=== PATIENT | female | born 1945 | race African-American/Black ===

== ENCOUNTER → 2020-11-21 | Outpatient (CLI) | payer OTHER | LOC: HYPER 09:09 | PROVIDERS: ATTEND Emergency Medicine | DX: E11.621 Type 2 diabetes mellitus with foot ulcer (principal); L97.522 Non-pressure chronic ulcer of other part of left foot with fat layer exposed; E11.622 Type 2 diabetes mellitus with other skin ulcer; L89.510 Pressure ulcer of right ankle, unstageable; L97.311 Non-pressure chronic ulcer of right ankle limited to breakdown of skin; L03.116 Cellulitis of left lower limb; L30.4 Erythema intertrigo; R60.0 Localized edema; E11.52 Type 2 diabetes mellitus with diabetic peripheral angiopathy with gangrene; I96 Gangrene, not elsewhere classified; E11.36 Type 2 diabetes mellitus with diabetic cataract; E11.39 Type 2 diabetes mellitus with other diabetic ophthalmic complication; H40.9 Unspecified glaucoma; G89.4 Chronic pain syndrome; I10 Essential (primary) hypertension; M32.10 Systemic lupus erythematosus, organ or system involvement unspecified; M81.0 Age-related osteoporosis without current pathological fracture; M21.371 Foot drop, right foot; M21.372 Foot drop, left foot; M19.90 Unspecified osteoarthritis, unspecified site; F32.9 Major depressive disorder, single episode, unspecified; F06.30 Mood disorder due to known physiological condition, unspecified; Z86.718 Personal history of other venous thrombosis and embolism; Z79.4 Long term (current) use of insulin ==

== ENCOUNTER 2020-11-25 10:03 | Inpatient (IN) | payer OTHER ==
[~2020-11-25] VITALS: Ht 162.6 cm; Wt 145.2 kg
--- NOTE | ~2020-11-25 | EMS ---
[address] [address] EMS Patient Care Report Name: MICHAEL MONTEMAYOR Room #: 170-1 ADM IN M.R.#: [id number] Admission: 11/25/20 Attend Phys: Jordon Flores MD Discharge: Date of : 43 Report #: [id number] THIS REPORT FOR: //name// Report Transmitted: 11/25/2020 19:14 EMS Care Summary [place], [place]/[facility] Incident [id number] @ 11/25/2020 09:29 Incident Location [address] Patient MICHAEL MONTEMAYOR Female, 75 Years 1945 Patient Address [address] [place] [address] Patient History Hypertension (HTN),Hyperlipidemia,Gastro-Esophageal Reflux Disease (GERD),Type 2 Diabetes,Cellulitis, Patient Allergies No known allergies, Patient Medications Novolog, Chief Complaint Pain in Left Foot and Left Bottom Disposition Transported No Lights/[place] Dispatch Reason Stroke/CVA Transported To [facility] Narrative Dispatched to the scene of a 75 year old female with altered mental status. Upon arrival, met P37 on scene and they stated patient was altered this [facility] [address] [place] [address] EMS Patient Care Report Name: MICHAEL MONTEMAYOR Room #: 170-1 ADM IN [place]#: [id number] Admission: 11/25/20 Attend Phys: Jordon Flores MD Discharge: Date of : 43 Report #: [id number] morning. P37 stated patient was alert and oriented x4, GCS 15 and was negative on CPHSS. Patient states she isn???t feeling like her normal self. Patient complains of pain in her left bottom. Stated she has a wound - unsure how long it had been there. Patient also has a wound on her left foot. Patient was assisted to the cot, secured, and loaded into the ambulance. An ALS assessment was performed and vitals were monitored. Patient complained of pain in her bottom while en route to hospital. Upon hospital arrival, patient was taken in on the cot, moved to the hospital bed, bed rails were raised, and patient care was transferred to the receiving nurse. Initial Vitals @09:51P: 102,R: 18,BP: 110/67,Pain: 6/10,GCS: 15,SpO2: 98,Revised Trauma: 12, @09:42P: 102,R: 18,BP: 115/68,Pain: 6/10,GCS: 15,Temp: 98.8F,Glucose: 149,CO: 1,SpO2: 96,Revised Trauma: 12, Assessments @09:41MENTAL:Time Oriented,Person Oriented,Place Oriented,Event Oriented,SKIN:HEENT:Head/Face: No Abnormalities,Neck/Airway: No Abnormalities,LUNG SOUNDS:General: No Abnormalities,ABDOMEN:General: No Abnormalities,PELVIS//GI:No Abnormalities,EXTREMITIES:Left Leg: Edema,Left Leg: Other,Right Leg: Edema,Capillary Refill: Left Upper: < 2 Sec,Left Arm: No Abnormalities,Right Arm: No Abnormalities,PULSE:Radial: 2+ Normal,NEURO:No Abnormalities,@09:52MENTAL:No Abnormalities,SKIN:No Abnormalities,HEENT:Head/Face: No Abnormalities,Eyes: No Abnormalities,Neck/Airway: No Abnormalities,LUNG SOUNDS:General: No Abnormalities,Left Upper: No Abnormalities,Right Upper: No Abnormalities,Left Lower: No Abnormalities,Right Lower: No Abnormalities,ABDOMEN:General: No Abnormalities,Left Upper: No Abnormalities,Right Upper: No Abnormalities,Left Lower: No Abnormalities,Right Lower: No Abnormalities,PELVIS//GI:No Abnormalities,EXTREMITIES:Left Leg: Other,Left Leg: Edema,Right Leg: Edema,Left Arm: No Abnormalities,Right Arm: No Abnormalities,PULSE:NEURO:No Abnormalities, Impression Pain (Non-Traumatic) Procedures @09:41ALS AssessmentResponse: UnchangedSucceeded Timeline 09:27,Call Received 09:27,Dispatch Notified 09:29,Dispatched 09:29,En Route 09:40,On Scene 09:41,At Patient [address] [address] EMS Patient Care Report Name: MICHAEL MONTEMAYOR Room #: 170-1 ADM IN M.R.#: [id number] Admission: 11/25/20 Attend Phys: Jordon Flores MD Discharge: Date of : 43 Report #: [id number] 09:41,ALS Assessment,Response: UnchangedSucceeded, 09:42,BP: 115/68 M,PULSE: 102,RR: 18 R,SPO2: 96 Ox,ETCO2: ,B,PAIN: 6,GCS: 15, 09:48,Depart Scene 09:51,BP: 110/67 M,PULSE: 102,RR: 18 R,SPO2: 98 Ox,ETCO2: ,BG: ,PAIN: 6,GCS: 15, 09:59,At Destination 10:25,Call Closed Disclaimer v1.1 Copyright 2020 [employer] This EMS Care Summary contains data elements from the applicable legal record (which may be displayed differently). It is designed to provide pertinent information for the following purposes: continuity of care, clinical quality, and state data reporting. The complete legal record is available to ED staff and administrators of the receiving hospital in ES's Patient Tracker. All data is provided "as is."
[2020-11-25 10:06] VITALS: BP 137/74
[2020-11-25 10:27] LABS: ABSOLUTE NEUTROPHILS 10.3 thou/uL (1.4-8.2); BASOPHILS 0.5 % (0.0-2.0); EOSINOPHILS 1.3 % (0.0-3.0); HEMATOCRIT 35.6 % (37.0-47.0); LYMPHOCYTES 9.8 % (24.0-44.0); MCH 26.1 pg (26.0-34.0); MCHC 30.9 g/dL (28.0-37.0); MCV 84.3 fL (80.0-100.0); MONOCYTES 7.6 % (1.0-8.0); PLATELET COUNT 306 thou/uL (150-400); POLYS 80.8 % (36.0-66.0); RBC 4.22 mil/uL (4.20-5.00); RDW 14.9 % (10.5-14.5); WBC 12.8 thou/uL (4.0-11.0)
[2020-11-25 10:34] LABS: CALCIUM 9.6 mg/dL (8.5-10.1); CREATININE 2.1 mg/dL (0.6-1.0); POTASSIUM 4.9 mmol/L (3.5-5.1)
[2020-11-25 10:40] LABS: ALBUMIN 3.2 g/dL (3.4-5.0); TOTAL BILIRUBIN 0.5 mg/dL (0.2-1.0); TOTAL PROTEIN 8.1 g/dL (6.4-8.2)
[2020-11-25 16:13] LABS: URINE BILIRUBIN NEGATIVE (Negative); URINE BLOOD TRACE (Negative); URINE CLARITY SL CLOUDY; URINE COLOR YELLOW; URINE GLUCOSE-RANDOM* NEGATIVE (Negative); URINE KETONES NEGATIVE (Negative); URINE LEUKOCYTES-REFLEX 3+ (Negative); URINE NITRITE-REFLEX POSITIVE (Negative); URINE PROTEIN (DIPSTICK) 1+ (Negative); URINE UROBILINOGEN 0.2 E.U./dl (0.2-1.0)
[2020-11-25 16:29] LABS: CASTS None Seen /LPF (None Seen); SQUAMOUS 0-3 Few /LPF (0-3)
[2020-11-25 16:30] LABS: BACTERIA-REFLEX >30 Many /HPF (None Seen); CRYSTALS None Seen /LPF (None Seen); URINE RBC 0-2 Rare /HPF (0-2); WBC CLUMPS Moderate (None Seen)
[2020-11-25 16:48] VITALS: BP 145/56
[2020-11-25] MEDS ORDERED: ELIQUIS5 MG PO (17:59)
[2020-11-25] MEDS ORDERED: SENNA PLUS TAB1 EACH PO (18:00)
[2020-11-25] MEDS ORDERED: CEPACOL INSTAM1 EACH PO (18:00)
[2020-11-25] MEDS ORDERED: NEURONTIN300 MG PO (18:01)
[2020-11-25] MEDS ORDERED: IRON325 M1 PO (18:01)
[2020-11-25] MEDS ORDERED: EFFEXOR XR37.5 MG PO (18:01)
[2020-11-25] MEDS ORDERED: LASIX 40 MG TAB40 MG PO (18:01)
[2020-11-25] MEDS ORDERED: LEVEMIR100 UNIT/1 SUBQ (18:02)
[2020-11-25] MEDS ORDERED: VYZULTA5 ML OPHTHALMIC (18:02)
[2020-11-25] MEDS ORDERED: LOPRESSOR50 MG PO (18:03)
[2020-11-25] MEDS ORDERED: ZEGERID 20 MG1 EACH PO (18:03)
[2020-11-25] MEDS ORDERED: NOVOLOG100 UNIT/M SUBQ (18:03)
[2020-11-25] MEDS ORDERED: KLOR-CON 10 ER10 MEQ PO (18:04)
[2020-11-25] MEDS ORDERED: PERCOCET 5-3251 EACH PO (18:04)
[2020-11-25] MEDS ORDERED: PRAVACHOL40 MG PO (18:04)
[2020-11-25] MEDS ORDERED: PREDNISONE 5 MG5 M1 PO (18:05)
[2020-11-26 04:59] LABS: ALBUMIN 2.6 g/dL (3.4-5.0); PHOSPHORUS 2.3 mg/dL (2.5-4.9); POTASSIUM 4.1 mmol/L (3.5-5.1)
[2020-11-26 05:05] LABS: HEMATOCRIT 31.7 % (37.0-47.0); HEMOGLOBIN 9.8 gm/dL (12.0-15.0); MCV 83.9 fL (80.0-100.0); RBC 3.78 mil/uL (4.20-5.00); RDW 14.7 % (10.5-14.5); WBC 13.8 thou/uL (4.0-11.0)
--- NOTE | 2020-11-26 10:52 | NUR ---
75-year-old female with chronic debility and diabetes presenting today for evaluation of mental status change. Notably patient is a chronically bedbound who was brought to the ED because of decreased mentation. Workup in the ED noted a WBC count of 12.8, evidence of a UTI, a creatinine of 2.1 and a CRP of 45. On exam she had a 4 cm purulent sacral ulcer. The patient was admitted for a sacral decubitus ulcers, UTI, ARG, DM2. COVID PRC negative in the ED on after negative COVID Antigen conducted in the ED also on 11-25-20. The patient currently resides in [facility] and sees Dr. Nunn for care. Called and spoke [facility] skilled nursing professional Yasmeen who states this patient does NOT have a DPOA as she has made all her own decisions and remains alert and oriented x4. Yasmeen also states that patient was last seen on either the or of this month at [facility] wound care. Yasmeen states that the next of kin is her brother Ben Swenson at [phone]. Have notified Registration to correct the current patient face sheet. CM will follow for discharge needs.
[2020-11-26 18:24] VITALS: BP 185/75
[2020-11-26 19:48] VITALS: BP 178/65
--- NOTE | 2020-11-27 02:38 | NUR ---
PT ADMITTED INTO THE UNIT FROM THE ER AT 1915 WITH C/O DIFFUSE MALAISE,PAIN TO SACRAL DECUB,PAIN TO LT FOOT AND MORE ALTERED THAN NORMAL.PT IS A/O X3.PT IS ACCUCHECK ACHS WITH SSI.PT WOUND PICTURES TAKEN ON ADMISSION AND ASSESSMENT DONE.PT ON BEDREST AND USES WHEELCHAIR IN FACILITY ([facility]).PT IS NSR ON TELE.PT HAS SLATER FOR URINARY RETENTION.PT NPO FROM MIDNIGHT FOR WOUND DEBRIDEMENT TODAY.PT C/O BACK PAIN AND PAIN MANAGED WITH OXYCODONE.WILL CONTINUE TO MONITOR
[2020-11-27 04:58] VITALS: BP 138/64
[2020-11-27 05:34] LABS: HEMATOCRIT 30.5 % (37.0-47.0); HEMOGLOBIN 9.6 gm/dL (12.0-15.0); MCH 26.4 pg (26.0-34.0); MCHC 31.4 g/dL (28.0-37.0); MCV 84.1 fL (80.0-100.0); RBC 3.63 mil/uL (4.20-5.00); RDW 14.9 % (10.5-14.5); WBC 10.3 thou/uL (4.0-11.0)
[2020-11-27 05:40] LABS: CALCIUM 8.5 mg/dL (8.5-10.1); CREATININE 2.1 mg/dL (0.6-1.0); POTASSIUM 3.8 mmol/L (3.5-5.1)
[2020-11-27 08:52] VITALS: BP 158/46
--- NOTE | 2020-11-27 09:13 | HC ---
[facility] [place] [address] [address] CONSULTATION Name: MICHALE MONTEMAYOR Darell Room #: 451-P ADM IN .R.#: [id number] Admission: 11/25/20 Attend Phys: Jordon Flores MD Discharge: Date of : 43 Report #: [id number] THIS REPORT FOR: cc: FAM - No family physician/PCP FAM - No family physician/PCP Giovanni Wilburn MD ~ DATE OF SERVICE: 11/26/2020 REASON FOR CONSULTATION: I was asked to evaluate concerning sacral wound infection and altered mental status. HISTORY OF PRESENT ILLNESS: The patient is 75 years old with underlying diabetes, chronic debilitated state, who has had a sacral wound, unclear of the duration, presents with altered mental status and further evaluation of such. She is bedbound. She has had amputations of both great toes. She also has a wound to the left second toe. She reports pain in her sacral region. She has had no reported cough, chest pain, nausea, vomiting or diarrhea. She was unable to give any further details on 14-point review of systems. ALLERGIES: None known. MEDICATIONS: As noted on her MAR, which were reviewed including Eliquis, Effexor, Neurontin, iron, Lasix, insulin, Lopressor, omeprazole, oxycodone, potassium, Pravachol, 10 mg of prednisone a day, latanoprostene eyedrops. PAST MEDICAL HISTORY: Diabetes, hyperlipidemia, pneumonia, GERD, SLE, peripheral neuropathy, osteoporosis, glaucoma, iron deficiency anemia, urinary retention, hypertension. FAMILY HISTORY: No reported tuberculosis. SOCIAL HISTORY: Past smoker, no significant alcohol intake. PHYSICAL EXAMINATION: VITAL SIGNS: Afebrile and hemodynamically stable. Oxygen saturation 92% on room air. GENERAL: She was alert. She was weak, obese. SKIN: Stage 4 sacral decubitus right over the coccyx, was tender to palpation. No purulent drainage. Left second toe with sausage deformity, erythematous with an ulceration over the DIP joint with small amount of purulent drainage. No palpable adenopathy. EYES: Without scleral icterus. MOUTH: Without mucositis. NECK: Supple. LUNGS: Clear. [facility] [address] [place] [address] CONSULTATION Name: MICHAEL MONTEMAYOR Darell Room #: 451-P [facility] IN [facility].#: [id number] Admission: 11/25/20 Attend Phys: Jordon Flores MD Discharge: Date of : 43 Report #: [id number] HEART: Regular, without murmur, gallop or rub. ABDOMEN: Soft and nontender with no hepatosplenomegaly or mass. Indwelling Garcia catheter. NEUROLOGIC: Cranial nerves intact. Was able to move all extremities, but was very weak. She had 2+ anasarca throughout her extremities. BACK: Nontender. PSYCHIATRY: Mood without anxiety or depression. LABORATORY STUDIES: Reviewed. MICROBIOLOGY: Reviewed. CT scan of the abdomen and pelvis reviewed, noting mild left greater than right hydronephrosis and mild distention of the bladder. No pelvic abscess or evidence of osteomyelitis. IMPRESSION: 1. A 75-year-old with underlying diabetes, hypertension, presents with confusional state, evidence of urinary tract infection and Gram-negative bacteremia. 2. Also, has sacral decubitus and a diabetic foot wound to left second toe. 3. Delirium secondary to the above. 4. Morbid obesity. 5. Acute kidney injury. 6. Anemia. RECOMMENDATIONS: 1. We will continue broad antibiotic coverage pending culture results. The patient will require indwelling Garcia catheter and possible Urology followup. 2. Further debridement of her sacral wound and her left second toe. 3. Control diabetes. 4. Serial laboratory studies and adjust antibiotics for her renal failure. <ELECTRONICALLY SIGNED> By: Giovanni Wilburn MD 11/27/20 0913 1822 1848 Giovanni Wilburn MD /nt
--- NOTE | 2020-11-27 13:43 | NUR ---
Case opened to follow for dc planning. Terminal System Operator visited with the pt at bedside and case discussed with the care team. Pt is a skilled nursing care resident from [facility]. She has lived there several years. She is A&ox3 today and requests keno writer to call her brother Ben to update him. Message left for Ben to advise of pt's room number and the number to the unit as well as our current visitor policy. Pt is covid neg upon admission. Surgical consult indicates I/D of sacral wound not indicated at this time. Pt is being treated for UTI with pending blood cultures. The pt reports she is feeling better. Ben is her primary next of kin contact and support. She is a DNR. A copy of the Outside the hospital DNR form is on the chart. Dc plan is to return to SNF at [facility]. The pt has been coming in to our wound clinic as an outpt as well. DC time frame 1-2 days. Dc convention planner to fax a clinical update to the DON at [facility]. They are holding her bed.
--- NOTE | 2020-11-27 15:22 | NUR ---
FAXED CLINICAL UPDATE TO [facility] RECEIVED CONFIRMATION AND LEFT MSG WITH ADM ESQUIVEL.
[2020-11-27 15:41] VITALS: BP 141/48
--- NOTE | 2020-11-27 19:31 | NUR ---
Assumed pt care at 7am.Pt in bed sleeping on and off. Alert and oriented x3 with intermitent confusion.Assessment completed.vss.Dr Valverde here,order noted. Dr Chauhan here later this evening to see pt,additional order noted.Drsg change will be done by daniel rn.Pt will be having bilateral lower extremities us in am.Report off to daniel long.
[2020-11-27 19:48] VITALS: BP 143/53
[2020-11-28 05:42] LABS: HEMATOCRIT 31.5 % (37.0-47.0); MCH 26.5 pg (26.0-34.0); MCHC 31.8 g/dL (28.0-37.0); MCV 83.4 fL (80.0-100.0); RBC 3.77 mil/uL (4.20-5.00); RDW 14.7 % (10.5-14.5); WBC 10.8 thou/uL (4.0-11.0)
[2020-11-28 05:51] LABS: CALCIUM 8.5 mg/dL (8.5-10.1); POTASSIUM 3.5 mmol/L (3.5-5.1)
--- NOTE | 2020-11-28 06:34 | NUR ---
Assumed pt care at 1900. A/OX3 with confusion noted,able to make needs known. VSS. C/o pain to sacrum/BLE medicated per EMAR with relief reported. Repositioned every 2hrs as tolorated. Garcia to DD with yellow urine,was blood tinged once but cleared now. IVF infusing via LAC w/o any difficulties. Fall precautions in place.Wound care to sacrum/3rd left done at HS w/o any problems. Resting w/o any distress at this time.
[2020-11-28 07:20] VITALS: BP 143/47
[2020-11-28] MEDS ORDERED: SEROQUEL 50 MG50 M1 PO (11:49)
[2020-11-28] MEDS ORDERED: SUMATRIPTAN (11:51)
[2020-11-28] MEDS ORDERED: VALIUM10 MG PO (11:52)
[2020-11-28 15:59] VITALS: BP 150/68
[2020-11-28 19:44] VITALS: BP 151/63
--- NOTE | 2020-11-28 20:04 | NUR ---
Assumed pt care this am , pain is managed iwth medications wound care done. TRansferred from 451 [address] in [address] draining yellow urine, would get confused through out the suht. FAll precautions in place, poc followed with no signs or verbalizations of distress noted. Endorsed to the night nurse.
--- NOTE | 2020-11-29 04:32 | NUR ---
11-28-20 CARE TRANSFERRED 1914. PT AAOX3, VSS, RR EVEN AND NONLABORED ON RA, PT REPORTS PAIN AND HAS BEEN MANAGED WITH MEDICATION. PT LEFT AC IV ACCESS PATIENT, NO REDNESS/SWELLING AT SIGHT. WOUND SACCUM WET TO DRY WITH KERLIX AND ABD, DRESSING CLEAN, DRY AND INTACT. LEFT FOOT 3RD DIGIT DRESSING CLEAN, DRY AND INTACT. DURING REPORT OFF GOING RN REPORTED THAT AIR MATTRESS AND BOOTS ORDERED FROM [employer] BUT HAD NOT ARRIVED. WILL GIVE IN REPORT TO CONSULT WITH [employer]. PT HAS TOLERATED ALL MEDICATION WELL THIS EVENING AND HAS BEEN PLEASANT, CALM AND COOPERATIVE. ZERO S/S OF ACUTE DISTRESS NOTED, PT WILL CONTINUE TO BE MONITOR.
--- NOTE | 2020-11-29 10:36 | NUR ---
REQUESTING PAIN MEDICINE FREQUENTLY THIS AM-ASKING PRIOR TO BREAKFAST AT APPROX 0830-LAST SCHEDULED DOSE 0640. STATES LOW BACK/BOTTOM HURT AND RATES PAIN A 9 ON 1-10 SCALE. ALERT AND VERBAL DURING AM MED PASS/ASSESSMENT-ORIENTED TO NAME ONLY-PUTTING CALL LIGHT ON ASKING TO URINATE REMINDED THAT SHE HAD A SLATER CATHETOR. PERCOCET 2 TABS GIVEN PO PRN AT APPROX 1000 FOR ABOVE REPORTED BACK PAIN. APPETITE IS GOOD. VS WNL-TRACE EDEMA TO LE BILATERALLY
[2020-11-29 15:43] VITALS: BP 141/44
--- NOTE | 2020-11-29 16:26 | NUR ---
PT CONTINUES ON IV MEROPENEM Q8 AND HAS WC. AWAITING ID RECS. UPDATED TO BE SENT TO [facility]. CM TO FOLLOW INDICATED WITH DC PLANNING.
--- NOTE | 2020-11-29 19:50 | NUR ---
INTENSIVIST LIGHT FREQUENTLY THIS PM-RESTLESS,ANXIOUS-UNABLE TO STATE WHAT SHE NEEDS UPON STAFF ARRIVAL TO ROOM-"I DON'T KNOW CAN YOU TELL ME WHAT TO DO" OR "WHAT DO I NEED TO DO" DOES RESPOND TO 1;1 TIME SUPPORT AND REASSURANCE BUT WILL BE INTENSIVIST LIGHT IMMEDIATLY UPON STAFF LEAVING ROOM. APPETITTE GOOD-DRESSING CHANGES COMPLETED PER ORDER-CONSENT SIGNED FOR SURGERY IN AM AND INSTRUCTED ON NPO AFTER MIDNIGHT.
[2020-11-29 19:52] VITALS: BP 153/60
[2020-11-29 19:57] VITALS: BP 153/60
--- NOTE | 2020-11-30 03:00 | NUR ---
PT CARE ASSUMED WITH PT IN BED.PT IS ALERT TO SELF AND VERY CONFUSE AND FORGETFUL.PT HAS WOUND ON SACRUM AND LEFT SECOND TOE.PT NPO FROM MIDNIGHT FOR SECOND LEFT AMPUTATION.PT GETTING CONFUSE AND YELLING .TURNAROUND ENGINEER SAADIA NOTIFIED AND ONETIME HALDOL PRESCRIBED.PT HAS A SLATER CATHETER IN PLACE.PT IS ACCUCHECK ACHS WITH SSI.WILL CONTINUE TO MONITOR POC
[2020-11-30 04:55] VITALS: BP 151/54
[2020-11-30 07:37] VITALS: BP 156/66
--- NOTE | 2020-11-30 08:00 | HC ---
[facility] [place] [address] [place] [address] CONSULTATION Name: MICHAEL MONTEMAYOR Darell Room #: 459-P ADM IN M.R.#: [id number] Admission: 11/25/20 Attend Phys: Jordon Flores MD Discharge: Date of : 43 Report #: [id number] THIS REPORT FOR: cc: FAM - No family physician/PCP FAM - No family physician/PCP Maldonado Chauhan MD ~ DATE OF SERVICE: 11/27/2020 CHIEF COMPLAINT: Left second toe ulcer and sacral ulceration. HISTORY OF PRESENT ILLNESS: This is a 75-year-old female patient with a history of hypertension, diabetes and hyperlipidemia, bedbound, who had decreased mentation and confusion, was admitted for further treatment. She was noted to have a sacral pressure ulceration as well as left second toe ulceration. I have been asked to see her in this regard. The patient denies any significant pain at this time. PAST MEDICAL HISTORY: Positive for type 2 diabetes mellitus, hyperlipidemia, GERD, SLE, peripheral neuropathy, prior surgical amputation of the left great toe, history of glaucoma, iron deficiency anemia, urinary retention, hypertension. SOCIAL HISTORY: Negative for alcohol use. She is a former smoker. No recreational drug use. FAMILY HISTORY: Noncontributory. MEDICATIONS: Include Eliquis, Cepacol, Effexor, Neurontin, iron, Lasix, Vyzulta, Levemir, Lopressor, Zegerid, Percocet, Klor-Con, Pravachol, prednisone. ALLERGIES: No known drug allergies. FAMILY HISTORY: Noncontributory. REVIEW OF SYSTEMS: CONSTITUTIONAL: The patient denies fever, chills or weight loss. NEUROLOGICAL: The patient denies focal weakness. She does have peripheral neuropathy. ENT: The patient denies earache, nasal drainage, sore throat. CARDIOVASCULAR: The patient denies chest pain, palpitations or diaphoresis. PULMONARY: The patient denies cough or shortness of breath. GASTROINTESTINAL: The patient denies nausea, vomiting, diarrhea or abdominal pain. ORTHOPEDIC: The patient is aware of the second toe ulceration and she is somewhat aware of the sacral ulcer. [facility] [address] [place] [address] CONSULTATION Name: MICHAEL MONTEMAYOR Room #: 459-P [facility] IN .R.#: [id number] Admission: 11/25/20 Attend Phys: Jordon Flores MD Discharge: Date of : 43 Report #: [id number] Other systems in a 14-point review of systems are negative. PHYSICAL EXAMINATION: VITAL SIGNS: Include temperature not documented, pulse 88, respiratory rate 19, blood pressure 145/56. GENERAL: This is a somewhat chronically ill-appearing female patient who appears to be in minimal distress. HEENT: Head normocephalic. Nose and throat are clear. NECK: Supple. LUNGS: Diminished. HEART: Regular, without murmur. ABDOMEN: Obese, soft, nontender. SKIN: Sacral region demonstrates what appears to be a stage 3 pressure ulceration. There is a mix of granulation a little bit of fibrin that is relatively easily wiped away from the surface. EXTREMITIES: Lower extremities demonstrate a surgically absent left great toe. She has a somewhat moist eschar on the dorsal aspect of the left second toe with some open ulceration, slight amount of drainage, mild tenderness to palpation. LABORATORY DATA: Laboratory studies include a sodium 138, potassium 4.9, chloride 103, CO2 of 24, BUN 40, creatinine 2.1, glucose 104, AST 22, ALT 26, alkaline phosphatase 42. CRP 45. Albumin 3.2. White blood cell count 12.8 with a hemoglobin of 11.0, hematocrit 35.6. CLINICAL IMPRESSION: 1. Stage 3 versus unstageable sacral pressure ulceration, chronic ulceration to the left third toe. 2. Peripheral neuropathy. 3. Diabetes mellitus type 2. 4. Acute renal failure. 5. Morbid obesity. RECOMMENDATIONS: At this point in time, we will recommend Dakin's moist gauze to the sacral ulcer twice daily and p.r.n. She will need a low mattress and q. 2 hour turning positioning. Surgery has been consulted, but did not feel that surgical debridement was indicated. With regard to the left third toe, we will place Xeroform followed by Gabby to be changed daily. We will check arterial Doppler. She will need heel protectors at all times. Continue medical management and provide nutritional support to maximize wound healing and glycemic control. I appreciate being asked to see her in consultation. <ELECTRONICALLY SIGNED> By: Maldonado Chauhan MD 11/30/20 0800 1602 180 Maldonado Chauhan MD /nt
--- NOTE | 2020-11-30 10:50 | NUR ---
CARE TEAM INDICATED THAT PT IS TO GO TO THE OT THIS DAY FOR AMPUTATION OF HER LEFT 3RD TOE. PT CONTINUES ON IV MERREM. [facility] IT IS ANTICIPATED THAT PT WILL TRANSFER TO [facility] POST OP. CM TO FOLLOW INDICATED WITH DC PLANNING.
--- NOTE | 2020-11-30 13:06 | NUR ---
Assumed pt care this am, Vs stable received NPO. Pt went down for surgery at 12 noon, jewelry removed (2 hoop earings, 2 stud earrings, 2 rings), given to the [address] [place] [address] nurse along with other belongings. report given. 2 pm dose of meropenem given to pre op, report given.
--- NOTE | 2020-11-30 14:55 | NUR ---
[facility]CEIV[facility] CONFIRMATION LEFT MSG WITH ADM.
[2020-11-30 17:52] VITALS: BP 159/87
--- NOTE | 2020-11-30 18:32 | NUR ---
ASSUMED PT CARE UPON TRANSFER TO UNIT. PT FAMILY CALLING UNIT AND REPORTING THAT DPOA DID NOT SIGN THE CONSENT FOR SURGERY, AND THAT THE PATIENT IS UNABLE TO SIGN THEIR OWN CONSENT. FAMILY DID NOT KNOW WHAT SURGERY THE PATIENT WAS HAVING. PASSED THIS INFORMATION ALONG TO HOSPITALIST, AND WOUND NURSE ADILIA IS TO CALL THE FAMILY REGARDING THE SITUATION.
[2020-11-30 20:16] VITALS: BP 158/76
--- NOTE | 2020-11-30 23:53 | NUR ---
PER REPORT,PT'S FAMILY NOT AWARE OF PT HAVING SURGERY TODAY.PT'S BROTHER CAME UP TO THE FLOOR AT IN THE COMPANY OF THE PIN MACHINE OPERATOR TO SEE PT BRIEFLY.PT WAS EXCITED TO SEE HER BROTHER BUT SHE DID NOT KNOW WHERE SHE WAS.DRSG TO HER L FOOT C/D/I.PT REPOSITIONED WHILE IN BED.DAKINS WET TO DRG TO HER SACRUM.SLATER CATH IN PLACE TO DD.NORMA LIGHT WITHIN REACH.
[2020-12-01 05:25] VITALS: BP 186/82
[2020-12-01 08:40] VITALS: BP 159/62
--- NOTE | 2020-12-01 10:32 | NUR ---
CALLED 4[facility] AND SPOKE TO KOLE ABOUT THE PT'S BLOOD CULTURE RESULTS. SHE STATED SHE WOULD PASS ALONG TO THE RN.
--- NOTE | 2020-12-01 13:52 | NUR ---
Assumed pt care this am, VS stable, pat is only alert to self and very forgetful. Wound care and dressing change done, surgical site dressing c/d/i. Pain is managed with medications,partial relief noted. Garcia cat in place draining dark yellow urine. Hydration and small frequent meals encouraged. Blood sugar checks done , medications given as per emar. POC followed with no signs or verbalizations of distress noted.
[2020-12-01 16:12] VITALS: BP 173/44
[2020-12-01 19:57] VITALS: BP 151/68
--- NOTE | 2020-12-02 03:48 | NUR ---
PT C/O PAIN TO L FOOT,MANAGED WITH MED.PT REPOSITIONED IN BED.WOUND CARE TO HER SACRUM DONE WITH DAKINS.BLE HEEL PROTECTORS IN PLACE.SLATER CATH TO DD WITH DARK URINE.CALL LIGHT WITHIN REACH.
[2020-12-02 08:15] VITALS: BP 179/57
[2020-12-02 10:07] LABS: HEMATOCRIT 33.3 % (37.0-47.0); HEMOGLOBIN 10.4 gm/dL (12.0-15.0); MCH 26.3 pg (26.0-34.0); MCHC 31.3 g/dL (28.0-37.0); MCV 83.9 fL (80.0-100.0); RBC 3.96 mil/uL (4.20-5.00); RDW 15.6 % (10.5-14.5); WBC 14.6 thou/uL (4.0-11.0)
[2020-12-02 10:16] LABS: CALCIUM 8.8 mg/dL (8.5-10.1); CREATININE 1.6 mg/dL (0.6-1.0); MAGNESIUM 1.8 mg/dL (1.8-2.4); POTASSIUM 3.6 mmol/L (3.5-5.1)
--- NOTE | 2020-12-02 16:24 | NUR ---
CARE ASSUMED AT 0700, ALERT AND ORIENTED X2, DENIES ANY NAUSEA AND VOMITTING. PT COMPLAINS OF INTERMITTENT SACRUM AND LEFT LEG PAIN. PAIN MED GIVEN PER ORDER. PT SLATER IN PLACE, PATENT AND SECURED. PT REPOSITIONED EVERY [address]CAUTIONS IN PL[address] WILL CONTINUE TO MONITOR.
[2020-12-02 16:58] VITALS: BP 173/62
[2020-12-02 18:05] VITALS: BP 154/78
[2020-12-02 19:20] VITALS: BP 167/62
[2020-12-03 03:57] VITALS: BP 165/55
--- NOTE | 2020-12-03 05:19 | NUR ---
PT LYING IN BED. PERCOCET PROVIDING PAIN RELIEF. CONFUSED. INCONTINENT OF STOOL. RESTING COMFORTABLY. FREQUENT OBSERVATION.
[2020-12-03 05:23] LABS: CALCIUM 8.6 mg/dL (8.5-10.1); CREATININE 1.5 mg/dL (0.6-1.0); MAGNESIUM 1.7 mg/dL (1.8-2.4); POTASSIUM 3.4 mmol/L (3.5-5.1)
[2020-12-03 05:25] LABS: HEMATOCRIT 31.7 % (37.0-47.0); HEMOGLOBIN 9.8 gm/dL (12.0-15.0); MCH 26.1 pg (26.0-34.0); MCV 84.4 fL (80.0-100.0); RBC 3.76 mil/uL (4.20-5.00); RDW 15.5 % (10.5-14.5); WBC 14.6 thou/uL (4.0-11.0)
[2020-12-03 10:15] VITALS: BP 146/60
--- NOTE | 2020-12-03 11:07 | NUR ---
ASSUMED PT CARE THIS AM. PT COMPLAINING OF PAIN, RESPONDING WELL TO PAIN MEDS. WHEN PT GIVEN PILLS LATER IN THE MORNING, SHE COUGHED/SPIT UP AFTER PILLS. DOCTOR MADE AWARE AND SPEECH EVAL AND GI CONSULT ORDERED. FREQUENT CHECKS IN PLACE. FALL PRECAUTIONS IN PLACE.SLATER PATENT. IV PATENT, FLUIDS INFUSING.
--- NOTE | 2020-12-03 14:37 | NUR ---
CM SPOKE WITH PHYSICIAN AND HE INDICATED THAT GI HAD SEEN PT RELATED TO DYSPHAGIA. PLAN IS FOR EGD TO BE DONE TOMORROW AM. CM CALLED AND PROVIDED PT'S BROTHER AND NIECE A HEADS UP. CLINICAL UPDATE SENT TO [facility]. CM FOLLOWING REGARDING DC PLANNING.
[2020-12-03 16:30] VITALS: BP 132/64
[2020-12-03 16:45] VITALS: BP 180/66
[2020-12-03 16:50] VITALS: BP 180/66
--- NOTE | 2020-12-03 18:39 | NUR ---
PT CONFUSED AND UNABLE TO CONSENT, HAS A HX OF A DVT AND IS IMMOBILE. WILL NEED TO INVESTIGATE IF A TUNNELED LINE IS MORE APPROPRIATE FOR THIS PT. RN ADVISED
[2020-12-03 18:49] VITALS: BP 190/55
--- NOTE | 2020-12-03 22:57 | NUR ---
PT AOX1, TO PERSON, PLEASANTLY CONFUSED WITH FORGETFULNESS. PT REPORTS 10/10 PAIN IN SACRUM. PT RECEIVING PRN PO OXYCODONE Q4HR. PT NOTED TO HAVE SOB WITH EXERTION, 2L O2 PER NC APPLIED WITH NOTED RELIEF. PT TOLERATING PO INTAKE OF FLUIDS AND CARB CONTROLLED DIET WITHOUT ISSUE. PT DENIES NAUSEA. PT INCONTINENT OF BOWEL, SLATER IN PLACE, PATENT. PT RESTING IN BED THROUGHOUT SHIFT, FREQUENT REPOSITIONING ENCOURAGED, LOW AIR LOSS MATTRESS REMAINS IN PLACE. PT ENCOURAGED TO NOTIFY STAFF FOR ALL NEEDS, CALL LIGHT WITHIN REACH, BED ALARM ON, BED LOCKED IN LOWEST POSITION, FREQUENT MONITORING WILL CONTINUE.
[2020-12-04 03:15] VITALS: BP 150/48
--- NOTE | 2020-12-04 03:17 | NUR ---
ASSUMED PT CARE FROM ROSETTA (NIGHT RN) JUST BEFORE MIDNIGHT. BEFORE REPORT I ASSISTED WITH A DRESSING CHANGE ON THE PT'S SACRAL WOUND. AFTER ASSESSING THE PT I AGREE WITH ROSETTA'S ASSESSMENT. PT IS ALERT TO SELF. PT SEEMS TO HAVE VISUAL HALLUCINATIONS. PT IS BEDREST. PT IS INCONTINENT. PT HAS A RIGHT FOREARM NS RUNNING AT 75 MLS/HR. HOURLY ROUNDS DONE ON PT. WILL CONTINUE TO MONITOR.
[2020-12-04 07:25] VITALS: BP 173/86
[2020-12-04 14:56] LABS: HEMATOCRIT 29.9 % (37.0-47.0); HEMOGLOBIN 9.6 gm/dL (12.0-15.0); MCH 26.6 pg (26.0-34.0); MCHC 32.1 g/dL (28.0-37.0); MCV 82.7 fL (80.0-100.0); RBC 3.62 mil/uL (4.20-5.00); RDW 15.6 % (10.5-14.5); WBC 12.1 thou/uL (4.0-11.0)
--- NOTE | 2020-12-04 15:42 | NUR ---
EGD HAD TO BE DELAYED UNTIL TOMORROW DUE TO DOSE OF ELIQUIS ON THURSDAY. FOLLOWING TO ASSIST WITH TRANSFER BACK TO [facility] FOR [facility] ONCE MEDICALLY STABLE.
[2020-12-04 16:06] LABS: CALCIUM 8.4 mg/dL (8.5-10.1); CREATININE 1.7 mg/dL (0.6-1.0); POTASSIUM 4.3 mmol/L (3.5-5.1)
[2020-12-04 16:20] VITALS: BP 167/70
--- NOTE | 2020-12-04 16:24 | NUR ---
PT AOX3 TO PERSON, PLACE, AND TIME, WITH INTERMITTENT FORGETFULNESS AND CONFUSION. PT NOTED TO HAVE FREQUENT EPISODES OF DISRUPTION PT YELLING OUT 'MAMA' AFTER CARES PROVIDED AND NEEDS MET. PT DIFFICULT TO REDIRECT. ATTENDING PROVIDER AWARE, COORDINATION OF CARE COMPLETED AFTER PRIMETIME HUDDLE. PT NOTED TO HAVE PAIN IN SACRUM. PT RECEIVING PRN PO OXYCODONE Q4HR. WOUND CARE COMPLETED. PT DENIES SOB ON ROOM AIR, NO DESATURATIONS NOTED. PT OBSERVED WITH WHEEZING UPON EXERTION, PT CONTINUES RECEIVING BREATHING TREATMENTS WHILE AWAKE. PT TOLERATING PO INTAKE OF FLUIDS AND CHOPPED CARB CONTROLLED DIET WITHOUT ISSUE. PT DENIES NAUSEA. PT VOIDING PER CATHETER, INCONTINENT OF BOWEL. PT RESTING IN BED THROUGHOUT SHIFT, FREQUENT REPOSITIONING ENCOURAGED. PT ENCOURAGED TO NOTIFY STAFF FOR ALL NEEDS, CALL LIGHT WITHIN REACH, BED ALARM ON, BED LOCKED IN LOWEST POSITION, FREQUENT MONITORING WILL CONTINUE.
--- NOTE | 2020-12-04 17:06 | PATH ---
[facility] [address] [place] [address] PATHOLOGY RPT PROCEDURE Name: ALBINAVIVIANEMICHAEL Darell Room #: 439-P ADM IN M.R.#: [id number] Admission: 11/25/20 Date of : 43 Discharge: Report #: [id number] Path Case #: [id number] [facility] Accession Number: [id number] . 01 Material submitted: . toe - LEFT SECOND TOE. Modifiers: left, second . 01 Clinician provided ICD-10: A41.50 N17.0 . 01 Clinical history: . OSTEOMYELITIS LEFT 2ND TOE GRAM NEGATIVE SEPSIS, ACUTE KIDNEY FAILURE WITH TUBULAR NECROSIS . 02 Diagnosis: Toe, left second toe, amputation: - Skin and subcutaneous tissue with ulceration and marked acute inflammation. - Acute inflammation of underlying bone consistent with acute osteomyelitis. - Skin and bone margins viable and unremarkable. . (IUV:mml; 12/04/2020) QLM 12/04/2020 1559 Local . 02 Electronically signed: . Luz Elena Espinosa MD, Pathologist NPI- [id number] . 01 Gross description: . The specimen is received in formalin, labeled "Michael Montemayor, left second toe". Received is an amputated digit measuring 4.9 x 2.1 x 1.8 cm in greatest dimensions. The bone margin is smooth and concave in appearance, consistent with disarticulation. The bone and soft tissue margins are inked black. The nail is present displaying a pale hamilton and slightly thickened appearance. On the dorsal aspect, there is a poorly circumscribed, necrotic-appearing lesion, which exposes the underlying bone, measuring 1.4 x 1.5 cm, which is 1.0 cm from the closest margin. A full-thickness longitudinal cross-section is submitted from proximal to distal aspects, following decalcification. (CAA; 12/03/2020) [facility] 12/03/2020 1602 Local . 02 Pathologist provided ICD-10: L97.529, L98.9, M86.172 . [address] [place] [address] PATHOLOGY RPT PROCEDURE Name: MICHAEL MONTEMAYOR Room #: 439-P [facility] IN M.R.#: [id number] Admission: 11/25/20 Date of : 43 Discharge: Report #: [id number] Path Case #: [id number] [facility] . [id number], [id number] Specimen Comment: A courtesy copy of this report has been sent to [phone] Specimen Comment: [phone] Specimen Comment: Report sent to / DR MCDOWELL Performed at: [address], [place], [place] [id number] MD Feng Núñez MD Phone: [phone] Performed at: [address] [id number] MD Luz Elena Espinosa MD Phone: [phone]
[2020-12-04 19:53] VITALS: BP 154/73
--- NOTE | 2020-12-05 03:38 | NUR ---
ASSUMED PT CARE FROM [facility] (DAY RN). PT IS A&OX1 SELF. PT HAS A RIGHT FOREARM WITH AN ORDER OF NS @ 75. MY CHARGE NURSE CHECKED ON MY PT AND TURNED OFF THE FLUIDS BECAUSE THE PT STARTED TO SOUND WET. PT SCREAMS DIFFERENT PEOPLES NAMES OUT INTO THE ARGUETA AFTER BEING REPOSITIONED AND GIVEN PAIN MEDICATION. PT HAS HAD TWO SMALL BM'S PT HAS BEEN REPOSITIONED Q2. PT IS ON A LOWW AIR LOSS MATRESS. PT'S DRESSING CHANGE WAS DONE ON 12/05/20 @ 0155. PT IS NOW ASLEEP IN HER ROOM. FREQUENT CHECKS DONE ON PT. WILL CONTINUE TO MONITOR.
[2020-12-05 06:06] LABS: HEMATOCRIT 28.5 % (37.0-47.0); MCH 26.8 pg (26.0-34.0); MCHC 31.7 g/dL (28.0-37.0); MCV 84.7 fL (80.0-100.0); RBC 3.37 mil/uL (4.20-5.00); RDW 15.7 % (10.5-14.5); WBC 7.6 thou/uL (4.0-11.0)
[2020-12-05 06:15] LABS: CALCIUM 8.3 mg/dL (8.5-10.1); CREATININE 1.6 mg/dL (0.6-1.0); POTASSIUM 3.8 mmol/L (3.5-5.1)
--- NOTE | 2020-12-05 11:20 | NUR ---
PATIENT TAKEN TO PRE OP FOR PROCEDURE HAVING EGD.
--- NOTE | 2020-12-05 11:54 | NUR ---
FAXED CLINICAL UPDATE TO [facility] SPOKE WITH CARMELA IN ADM THAT PT POSS DC BACK TO FACILITY AFTER EGD TODAY SHE AGREED WITH DC TODAY.
--- NOTE | 2020-12-05 13:03 | O ---
[facility] [place] [address] [place] [address] OPERATIVE REPORT Name: MICHAEL MONTEMAYOR Room #: 439-P ADM IN M.R.#: [id number] Admission: 11/25/20 Attend Phys: Jordon Flores MD Discharge: Date of : 43 Report #: [id number] THIS REPORT FOR: cc: FAM - No family physician/PCP FAM - No family physician/PCP Giovanni Beasley DPM ~ DATE OF SERVICE: 11/30/2020 SURGEON: Giovanni Beasley DPM PREOPERATIVE DIAGNOSIS: Osteomyelitis, left second toe. POSTOPERATIVE DIAGNOSIS: Osteomyelitis, left second toe. PROCEDURE: Amputation, left second toe at MTP joint with primary closure. ANESTHESIA: MAC. INJECTABLES: 15 mL of 0.5% Marcaine plain. SUTURES: 3-0 nylon. HEMOSTASIS: Left ankle tourniquet at 275 mmHg. ESTIMATED BLOOD LOSS: 1 mL. SPECIMENS: Left second toe. CULTURES: 1. Bone, left second toe, aerobic and anaerobic. 2. Soft tissue, left second toe, aerobic and anaerobic. COMPLICATIONS: None. DESCRIPTION OF PROCEDURE: The patient was brought to the OR and left on her hospital bed for the procedure. A well-padded left ankle tourniquet was placed and a local anesthetic block was given. The extremity was prepped and draped aseptically and then I exsanguinated the foot with inflation of the tourniquet. A #10 surgical blade was used to create a circumferential incision around this left second toe at the MTP joint. An electrocautery was used for hemostasis. The skin edges were remodeled. The wound was flushed with sterile saline and dried. I closed the skin with 3-0 nylon in simple interrupted fashion. A sterile bandage with Xeroform, 4 x 4s, ABDs, Kerlix, and Carlitos were applied. [facility] [address] [place] [address] OPERATIVE REPORT Name: MICHAEL MONTEMAYOR Room #: 439-P [facility] IN [facility].#: [id number] Admission: 11/25/20 Attend Phys: Jordon Flores MD Discharge: Date of : 43 Report #: [id number] tourniquet was deflated with normal vascular return. The patient left the OR with no pain or complications noted. <ELECTRONICALLY SIGNED> By: Giovanni Beasley DPM 12/05/20 1303 0829 0847 Giovanni Beasley DPM /nt
--- NOTE | 2020-12-05 13:03 | HC ---
[facility] [place] [address] [place] [address] CONSULTATION Name: ALBINAMICHAEL HURST Darell Room #: 439-P ADM IN M.R.#: [id number] Admission: 11/25/20 Attend Phys: Jordon Flores MD Discharge: Date of : 43 Report #: [id number] THIS REPORT FOR: cc: FAM - No family physician/PCP FAM - No family physician/PCP Giovanni Beasley DPM ~ DATE OF SERVICE: 11/29/2020 CHIEF COMPLAINT AND HISTORY OF PRESENT ILLNESS: Ulceration of right dorsal second toe with osteomyelitis. The patient is a 75-year-old female with polymicrobial infection to the right second toe with underlying osteomyelitis, necessitating toe amputation. She is currently on parenteral meropenem. She was admitted on 11/25/2020 for increased confusion and decreased mentation. The patient is bedbound with history of HTN, HLD, DMT, RUE DVT, morbid obesity. She also has an ulceration to her sacral region. She is nonambulatory. LABORATORY DATA: WBC 10.8, RBC 3.77, hemoglobin 10.0, hematocrit 31.5, platelets 252. BUN 24, creatinine 2.0, glucose 114, albumin 2.6. PHYSICAL EXAMINATION: Temperature 97.9, pulse 78, respirations 16, blood pressure 141/44. There is a penetrating ulceration to the dorsal aspect of the right second toe overlying the PIP joint. The wound roughly 8 mm diameter with exposed bone and wet fibronecrotic slough. There is localized inflammation and erythema consistent with soft tissue infection. The toe is in a rigid hammertoe position, it is nontender to the touch. Her feet are warm with excessive lymphedema to both lower extremities. IMPRESSION: Osteomyelitis, right second toe. PLAN: The patient requires digital amputation with primary closure. I will keep her n.p.o. past midnight and get her scheduled for surgery sometime tomorrow. <ELECTRONICALLY SIGNED> By: Giovanni Beasley DPM 12/05/20 1303 1718 1935 Giovanni Beasley DPM /nt
--- NOTE | 2020-12-05 13:03 | HC ---
[facility] [place] [address] [place] [address] CONSULTATION Name: MICHAEL MONTEMAYOR Room #: 439-P ADM IN M.R.#: [id number] Admission: 11/25/20 Attend Phys: Jordon Flores MD Discharge: Date of : 43 Report #: [id number] THIS REPORT FOR: cc: FAM - No family physician/PCP FAM - No family physician/PCP Giovanni Beasley DPM ~ DATE OF SERVICE: 12/02/2020 CHIEF COMPLAINT: Postoperative day #2 for amputation of left second toe at MTP joint with primary closure. Surgical bone cultures growing Staphylococcus aureus. She has concomitant urinary tract infection with septicemia with E. coli. She remains on parenteral meropenem. LABORATORY DATA: WBC 14.6, RBC 3.96, hemoglobin 10.4, hematocrit 33.3, platelets 353. BUN 11, creatinine 1.6, glucose 175. PHYSICAL EXAMINATION: Temperature 98.2, pulse 87, respirations 20, blood pressure 179/57. Surgical incision well approximated with mild edema and no erythema or cardinal signs of infection, no signs of acute vascular embarrassment. No underlying fluctuance or crepitation. No other lesions noted to the extremity. IMPRESSION: Osteomyelitis, left second toe, status post toe amputation x2 days. PLAN: The incision was cleansed and redressed with Xeroform, fluff, ABD and Kerlix and Carlitos with PRAFO boot. <ELECTRONICALLY SIGNED> By: Giovanni Beasley DPM 12/05/20 1303 1133 1259 Giovanni Beasley DPM /nt
[2020-12-05 16:19] VITALS: BP 147/77
--- NOTE | 2020-12-05 17:15 | NUR ---
REQUESTED CHART COPY FROM SENIOR LOSS CONTROL SPECIALIST IN ANTICIPATION OF DC TO [facility].
--- NOTE | 2020-12-05 19:01 | NUR ---
PATIENT BACK FROM CT SCAN AT THIS TIME. ASSIST XS 4 TO BED .
--- NOTE | 2020-12-05 19:34 | NUR ---
CT SCAN AND CHEST X RAY ORDERED. PT ALERT XS 1-2. CONT ON IV ABT'S THROUGH LEFT FA. HAD EGD TODAY SEE RESULTS AND FINDINGS. PT WEARS 2L/ NC OF O2. HAS SLATER CATH TO D/D. PT GIVEN PRN PAIN MED XS1 OF SHIFT.
[2020-12-05 20:59] VITALS: BP 151/74
--- NOTE | 2020-12-06 03:43 | NUR ---
ASSESSED AT START OF SHIFT. PT IN BED REPOSITIONED FOR COMFORT. EVENING MEDS GIVEN. BSG CHECKED. NIGHT TIME SNACKS PROVIDED. IV INTACT WITH FLUIDS. ON 2L OF O2. PT YELLS OUT AND RESTLESS AT START OF SHIFT. CUSTOMER EXPERIENCE STRATEGIST NOTIFIED. MELATONIN GIVEN FOR SLEEP. LEFT FOOT DRESSING C/D/I AND ON A PRAFO BOOT. SCD'S ON BLE. FOLLEY INTACT. FALL PREC IN PLACE AND WILL CONT TO MONITOR.
[2020-12-06 08:00] VITALS: BP 151/74
--- NOTE | 2020-12-06 10:11 | NUR ---
VAT SPOKE WITH RN IN CV HOLDING AND MORRIS PRIMARY RN ON 4S REGARDING WHY PICC IS NOT APPROPRIATE DUE TO DVT R ARM, PT VERY HIGH RISK FOR NEW DVT WITH PICC PLACEMENT
[2020-12-06 10:30] LABS: HEMATOCRIT 30.1 % (37.0-47.0); HEMOGLOBIN 9.4 gm/dL (12.0-15.0); MCH 26.2 pg (26.0-34.0); MCHC 31.4 g/dL (28.0-37.0); MCV 83.4 fL (80.0-100.0); RBC 3.61 mil/uL (4.20-5.00); WBC 7.9 thou/uL (4.0-11.0)
[2020-12-06 10:38] LABS: CALCIUM 8.3 mg/dL (8.5-10.1); CREATININE 1.6 mg/dL (0.6-1.0); POTASSIUM 3.9 mmol/L (3.5-5.1)
[2020-12-06] MEDS ORDERED: LANTUS SUBQ (15:52)
[2020-12-06] MEDS ORDERED: HUMALOG100 UNIT/1 SUBQ (15:53)
[2020-12-06] MEDS ORDERED: MEROPENEM500 MG IV (15:54)
[2020-12-06] MEDS ORDERED: VANCO1GM IV (15:55)
[2020-12-06 16:49] VITALS: BP 164/83
--- NOTE | 2020-12-06 16:49 | NUR ---
FAXED CLINICAL UPDATE TO [facility] RECEIVED CONFIRMATION AND SPOKE WITH NATALIYA SPRINGER OF FACILITY THAT PT POSS DC BACK TO FACILITY TODAY SHE WAS AGREEABLE TO ACCEPT PT BACK TODAY. WAS NOTIFIED BY SW THAT PT IS TO DC BACK TO [facility] TODAY FAXED AMBULANCE FORM TO [facility] AND TO NURSING UNIT TO PUT WITH CHART COPY, LEFT VOICEMAIL WITH NATALIYA AT [facility] THAT PT WILL DC BACK TODAY, FAX DC ORDERS/SUMMARY TO [phone] AND CALL REPORT TO [phone] CALL [facility] TO SET UP TRANSPORT AT [phone].
--- NOTE | 2020-12-06 16:58 | NUR ---
PT'S BP & PULSE ELEVATED AFTER LINE PLACEMENT. CASE DISCUSSED WITH DR WEAVER & HE WILL PLAN TO TREAT BP & DISCHARGE TOMORROW AFTER THIS IS STABILIZED. DC HOSE HANDLER NOTIFIED [facility]. RN NOTIFIED THAT DC IS BEING HELD,
--- NOTE | 2020-12-06 18:59 | NUR ---
PATIENT IN BED HAD EKG AWAITING RESULTS. PICC PLACED DOUBLE LUMEN. VS. 98.5 22 PULSE IRREGULAR 90-105, 164/84 O2 SAT= 94%RA DR WEAVER PUT ORDER FOR B/P MED. STUDENT AND INSTRUCTOR TO GIVE DIET CHANGED TO REGULAR WAS NPO EARLIER. SLATER TO D/D IV FLUIDS INFUSING AND CONT ON IV ABT'S. PT TO DC TO [facility] TO TRANSPORT. PT ALERT XS 1-2.
[2020-12-06 20:02] VITALS: BP 184/72
[2020-12-06 20:44] VITALS: BP 152/61
--- NOTE | 2020-12-07 04:59 | NUR ---
ASSESSED PT AT START OF SHIFT. PT IN BED. ALERT TO SELF CONFUSED AND YELLS OUT. EVENING MEDS GIVEN AND PT BOO IT WELL. PT REPOSITIONED FOR COMFORT. JESSIE FOOT IN PRAFO BOOTS. PO FLUIDS GIVEN. BSG CHECKED. FALL PREC IN PLACE AND WILL CONT TO MONITOR.
[2020-12-07 05:33] LABS: HEMATOCRIT 29.6 % (37.0-47.0); HEMOGLOBIN 9.3 gm/dL (12.0-15.0); MCH 26.5 pg (26.0-34.0); MCHC 31.3 g/dL (28.0-37.0); MCV 84.6 fL (80.0-100.0); RBC 3.49 mil/uL (4.20-5.00); RDW 15.9 % (10.5-14.5); WBC 8.9 thou/uL (4.0-11.0)
[2020-12-07 05:37] LABS: CALCIUM 8.4 mg/dL (8.5-10.1); CREATININE 1.5 mg/dL (0.6-1.0); MAGNESIUM 1.9 mg/dL (1.8-2.4); POTASSIUM 4.3 mmol/L (3.5-5.1)
--- NOTE | 2020-12-07 07:17 | EKG ---
[address] [address] ELECTROCARDIOGRAM REPORT Name: MICHAEL MONTEMAYOR Room #: 439- ADM IN .R.#: [id number] Admission: 11/25/20 Attend Phys: Jordon Flores MD Discharge: Date of : 43 Report #: [id number] [facility] Test Date: 2020-12-06 Test Time: 17:16:50 Pat Name: MICHAEL BASSAWAY Department: Room: 439 Gender: F Genetic Physician: Rivera PERRY : 1945 Requested By: Peng López Order Number: [id number] MD: Jesus Alberto Palmer Measurements Intervals [place] Rate: 96 P: 21 MS: 129 QRS: -3 QRSD: 91 T: 47 QT: 356 QTc: 450 Interpretive Statements Sinus rhythm No previous ECG available for comparison Electronically Signed On 12-07-2020 7:17:08 DAIRY MANAGER by Jesus Alberto Palmer [email or web address] <ELECTRONICALLY SIGNED> By: Jesus Alberto Palmer MD, [facility] 12/07/20 0717 1716 1716 Jesus Alberto Palmer MD, FACC /EPI
[2020-12-07 07:30] VITALS: BP 139/66
[2020-12-07] MEDS ORDERED: VANCO1GM IV (15:31)
[2020-12-07 16:02] VITALS: BP 142/52
--- NOTE | 2020-12-07 17:17 | NUR ---
Assumed patient care at 0700. alert. confused. poor appetite. dresing changed per order. called amuor snf two times that no one take my report. received SW call that patient doesn't dc'd today right after loaded patient on ambulance gurnet at 1650. transfer patient back to bed. contiune care.
--- NOTE | 2020-12-07 18:06 | PATH ---
[facility] [place] [address] PATHOLOGY RPT PROCEDURE Name: MICHAEL MONTEMAYOR Darell Room #: 439-P ADM IN M.R.#: [id number] Admission: 11/25/20 Date of : 43 Discharge: Report #: [id number] Path Case #: [id number] LCA Accession Number: [id number] . 01 Material submitted: . PART A: pyloric antrum - ANTRUM R/O H. PYLORI PART B: esophagus - DISTAL ESOPHAGUS R/O HENRY'S. Modifiers: distal . 01 Clinician provided ICD-10: A41.50 N17.0 . 01 Clinical history: . ANEMIA,DYSPHAGIA HIATAL HERNIA, HENRY'S, GASTRITIS . 02 Diagnosis: A. Gastric mucosa, antrum rule out H. pylori, endoscopic biopsy: - Mild reactive gastropathy. - Negative for intestinal metaplasia or atrophy. - Negative for Helicobacter pylori (properly controlled immunohistochemical stain performed). . B. 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 - Mild acute inflammation. - Focal squamous mucosa with reactive changes. - Negative for dysplasia. LBQ 12/07/2020 1332 Local . 02 Comment: The above diagnosis of Henry's esophagus is made due to presence of intestinal metaplasia and with the assumption that the biopsies were obtained from the columnar mucosa in the distal esophagus located at least 1 cm proximal to the top of the gastric folds as per the 2016 ACG guidelines. (IUV/db; 12/07/2020) . 02 Electronically signed: . Luz Elena Espinosa MD, Pathologist NPI- [id number] . 01 Gross description: . A. The specimen is received in formalin, labeled "Michael Montemayor, biopsy antrum, R/O H. pylori". Received are two [place] [address] PATHOLOGY RPT PROCEDURE Name: MICHAEL MONTEMAYOR Room #: 439-P [facility] IN .R.#: [id number] Admission: 11/25/20 Date of : 43 Discharge: Report #: [id number] Path Case #: [id number] tissue ranging in size from 0.2 to 0.5 cm in maximum dimensions. The specimen is submitted entirely in cassette A1. . B. The specimen is received in formalin, labeled "Michael Leela, biopsy distal esophagus, R/O Henry's". Received are two segments of pale hamilton soft tissue ranging in size from 0.2 to 0.3 cm in maximum dimensions. The specimen is submitted entirely in cassette B1. (CAA; 12/06/2020) QAC/QAC 12/06/2020 1417 Local . 02 Pathologist provided ICD-10: K31.9, K20.90 . 02 CPT . [id number], [id number], [id number] Specimen Comment: A courtesy copy of this report has been sent to [phone] Specimen Comment: [phone] Specimen Comment: Report sent to / DR MCDOWELL Performed at: [address], [place] [id number] MD Feng Núñez MD Phone: [phone] Performed at: [address] [id number] MD Luz Elena Espinosa MD Phone: [phone]
[2020-12-07 19:32] VITALS: BP 139/60
--- NOTE | 2020-12-08 00:58 | NUR ---
ASSUMED PT CARE AT SHIFT CHANGE. PT IS ALERT TO SELF AND CONFUSED. PT CALLS OUT INTO THE ARGUETA. GAVE PT MELATONIN. PT IS NOW SLEEPING IN HER ROOM. PT TAKES MEDICATION WITH APPLE SAUCE. PT IS ON 1 L O2 NASAL CANULA. PT RATES HER PAIN AT A 10. SLATER IS IN PLACE. PT VOIDING YELLOW URINE. DRESSING CHANGED ON PT'S SACRUM. SMEAR BM PRESENT AT DRESSING CHANGE. Q2 TURNS DONE ON PT. HOURLY ROUNDS DONE ON PT. WILL CONTINUE TO MONITOR.
[2020-12-08 09:01] VITALS: BP 131/50
--- NOTE | 2020-12-08 12:18 | NUR ---
FAXED [facility] THE DISCHARGE ORDERS/SUMMARY, ATTENTION TO MITCHEL/NOMAN. [place] UPDATED TO [employer]ILOT PATIENT AT 2:00 PM PER REQUEST FROM [place]/NOMAN. CONFIRMED WITH MITCHEL/NOMAN AT [facility] THAT THEY RECEIVED DOCUMENTS. SPOKE WITH PATIENT'S BROTHER - ROBYN MONTEMAYOR AT [phone] OF DISCHARGE PLANS AND TIME. REQUESTED ADMITTING TO UPDATE BROTHER'S INFORMATION ON FACE SHEET. NURSING UNIT NOTIFIED OF TIME CHANGE. CHART COPY COMPLETED. [facility] P [phone]; FAX [phone]
== END 2020-12-08 14:45 | DRG 853 ==
LOC: ER 10:03 → EROBS 16:31 → 4S 16:31 → 4W 16:31 → EROBS 11-26 09:21 → 4W 11-26 18:55 → 4S 11-30 13:35
PROVIDERS: Emergency Medicine; Internal Medicine; Nurse Practitioner; ADMIT Hospitalist; ATTEND Hospitalist
DX: A41.50 Gram-negative sepsis, unspecified (principal); L89.153 Pressure ulcer of sacral region, stage 3; N17.0 Acute kidney failure with tubular necrosis; G92 Toxic encephalopathy; Z68.43 Body mass index [BMI] 50.0-59.9, adult; M86.8X7 Other osteomyelitis, ankle and foot; E44.0 Moderate protein-calorie malnutrition; N12 Tubulo-interstitial nephritis, not specified as acute or chronic; Z16.12 Extended spectrum beta lactamase (ESBL) resistance; J98.11 Atelectasis; R65.20 Severe sepsis without septic shock; L97.519 Non-pressure chronic ulcer of other part of right foot with unspecified severity; E78.5 Hyperlipidemia, unspecified; K21.9 Gastro-esophageal reflux disease without esophagitis; M32.9 Systemic lupus erythematosus, unspecified; E11.42 Type 2 diabetes mellitus with diabetic polyneuropathy; E11.69 Type 2 diabetes mellitus with other specified complication; E66.01 Morbid (severe) obesity due to excess calories; R41.0 Disorientation, unspecified; R33.9 Retention of urine, unspecified; D64.9 Anemia, unspecified; B96.20 Unspecified Escherichia coli [E. coli] as the cause of diseases classified elsewhere; E11.22 Type 2 diabetes mellitus with diabetic chronic kidney disease; N18.9 Chronic kidney disease, unspecified; I12.9 Hypertensive chronic kidney disease with stage 1 through stage 4 chronic kidney disease, or unspecified chronic kidney disease; F41.9 Anxiety disorder, unspecified; K22.70 Barrett's esophagus without dysplasia; K44.9 Diaphragmatic hernia without obstruction or gangrene; K22.8 Other specified diseases of esophagus; K29.70 Gastritis, unspecified, without bleeding; R13.10 Dysphagia, unspecified; Z20.822 Contact with and (suspected) exposure to COVID-19; Z79.899 Other long term (current) drug therapy; Z87.891 Personal history of nicotine dependence; Z79.4 Long term (current) use of insulin; Z79.01 Long term (current) use of anticoagulants; Z74.01 Bed confinement status
CPT/HCPCS: 10040; 10102; 50010; 50101; 50386; 56527; 57091; 57178; 62110; 62850; 62900; 70005